=== PATIENT | male | born 1975 | race Caucasian/White ===

== ENCOUNTER 2022-10-04 11:43 | Emergency (ER) | payer OTHER ==
[2022-10-04 11:49] VITALS: BP 155/97; PULSE 96; RESP 18; TEMP 98.7; BMI 26.5
[2022-10-04] MEDS ORDERED: DIPHTH,PERTUSS(ACELL),TET 0.5 ML DISP.SYRIN IM ONE ×2 (12:13→12:29)
[2022-10-04] MEDS ORDERED: ceFAZolin SODIUM 1 GM VIAL IM ONE (13:04)
[2022-10-04] MEDS ORDERED: ceFAZolin SODIUM 1 GM VIAL ONE (13:15)
== END 2022-10-04 13:29 | disposition home or self-care (01) ==
LOC: JERFT 11:43 → JER 11:43 → JERFT 13:29
PROC: 3E02329 Introduction of Other Anti-infective into Muscle, Percutaneous Approach (ICD-10-PCS; principal; 2022-10-04)
PROC: 3E0234Z Introduction of Serum, Toxoid and Vaccine into Muscle, Percutaneous Approach (ICD-10-PCS; 2022-10-04)
PROC: 0HQGXZZ Repair Left Hand Skin, External Approach (ICD-10-PCS; 2022-10-04)
PROC: 2W3KX1Z Immobilization of Left Finger using Splint (ICD-10-PCS; 2022-10-04)
DX: S61.211A Laceration without foreign body of left index finger without damage to nail, initial encounter (principal); W26.8XXA Contact with other sharp object(s), not elsewhere classified, initial encounter
CPT/HCPCS: 73130-TC-LT-FY; 90715; 99284-25

== ENCOUNTER 2022-10-09 11:50 | Emergency (ER) | payer OTHER ==
[2022-10-09 12:28] VITALS: BP 136/87; PULSE 85; RESP 18; TEMP 98.5; BMI 26.5
== END 2022-10-09 13:25 | disposition home or self-care (01) ==
LOC: JERFT 11:50
DX: Z48.02 Encounter for removal of sutures (principal)
CPT/HCPCS: 99281-25

== ENCOUNTER 2022-10-17 08:19 | Emergency (ER) | payer OTHER ==
[2022-10-17 08:29] VITALS: BP 149/89; PULSE 76; RESP 18; TEMP 98; BMI 27.1
== END 2022-10-17 09:19 | disposition home or self-care (01) ==
LOC: JER 08:19
DX: Z48.02 Encounter for removal of sutures (principal)
CPT/HCPCS: 99281-25